=== PATIENT | female | born 1970 | race Caucasian/White ===

== ENCOUNTER 2017-10-11 19:13 | Emergency (ER) | payer OTHER ==
[2017-10-11] MEDS: KETOROLAC 60 MG INJ IM (21:30)
[2017-10-11 21:35] LABS: URINE PH (Dip) POC 6.5 (5.0-8.5)
[2017-10-11 21:35] LABS: URINE BLOOD (Dip) POC 2+ (NEGATIVE); URINE GLUCOSE (Dip) POC Negative (NEGATIVE); URINE KETONES (Dip) POC Negative (NEGATIVE); URINE LEUKOCYTE EST (Dip) POC Negative (NEGATIVE); URINE NITRITE (Dip) POC Negative (NEGATIVE); URINE TOTAL PROTEIN POC Negative (NEGATIVE)
[2017-10-11] MEDS: HYDROCODONE/APAP (5/325) TAB PO (23:36)
== END 2017-10-12 03:10 | disposition left against medical advice (07) ==
LOC: FTE 10-12 03:10
DX: M54.5 Low back pain (principal)
CPT/HCPCS: 72072; 72128; 81003; 96372; 99285-25

== ENCOUNTER 2017-12-19 16:53 | Emergency (ER) | payer OTHER ==
[2017-12-19] MEDS: HYDROCODONE/APAP (5/325) TAB PO (20:33)
[2017-12-19 20:50] LABS: ADD MAN DIFF? NO
[2017-12-19 20:53] LABS: BASOPHILS % 0.4 % (0.0-2.0); EOSINOPHILS # 0.1 10^3/ul (0.0-0.5); EOSINOPHILS % 1.2 % (0.0-7.0); HEMATOCRIT 36.7 % (37.0-47.0); HEMOGLOBIN 12.5 g/dl (12.0-16.0); LYMPHOCYTES % 29.2 % (15.0-51.0); MEAN CORPUSCULAR HEMOGLOBIN 31.1 pg (29.0-33.0); MEAN CORPUSCULAR HGB CONC 34.1 g/dl (32.0-37.0); MEAN CORPUSCULAR VOLUME 91.3 fl (82.0-101.0); MEAN PLATELET VOLUME 9.1 fl (7.4-10.4); MONOCYTE # 0.6 10^3/ul (0.3-0.9); MONOCYTES % 8.4 % (0.0-11.0); NEUTROPHIL # 4.1 10^3/ul (1.6-7.5); NEUTROPHILS % 60.7 % (39.0-77.0); PLATELET COUNT 353 10^3/UL (140-415); RED BLOOD COUNT 4.02 10^6/ul (4.20-5.40); RED CELL DISTRIBUTION WIDTH 13.3 % (11.5-14.5)
[2017-12-19 20:53] LABS: WHITE BLOOD COUNT 6.8 10^3/ul (4.8-10.8)
[2017-12-19 21:20] LABS: ALANINE AMINOTRANSFERASE 42 IU/L (13-69); ALBUMIN 4.5 g/dl (3.3-4.9); ALBUMIN/GLOBULIN RATIO 1.18; ALKALINE PHOSPHATASE 76 IU/L (42-121); ANION GAP 16 (8-16); ASPARTATE AMINO TRANSFERASE 27 IU/L (15-46); BLOOD UREA NITROGEN 9 mg/dl (7-20); CALCIUM 9.9 mg/dl (8.4-10.2); CARBON DIOXIDE 26 mmol/L (21-31); CHLORIDE 107 mmol/L (97-110); CREATININE 0.59 mg/dl (0.44-1.00); GLUCOSE 97 mg/dl (70-220); POTASSIUM 4.4 mmol/L (3.5-5.1); SODIUM 145 mmol/L (135-144); TOTAL PROTEIN 8.3 g/dl (6.1-8.1)
[2017-12-19 21:49] LABS: MONOTEST Negative (NEG)
== END 2017-12-19 23:10 | disposition home or self-care (01) ==
LOC: FTE 16:53
DX: R07.0 Pain in throat (principal)
CPT/HCPCS: 36415; 76536; 80053; 85025; 86308; 87880; 99284-25

== ENCOUNTER 2018-04-27 14:38 | Emergency (ER) | payer OTHER ==
[2018-04-27 16:53] LABS: WHITE BLOOD COUNT 5.1 10^3/ul (4.8-10.8)
[2018-04-27 16:53] LABS: ADD MAN DIFF? NO; BASOPHILS % 0.4 % (0.0-2.0); EOSINOPHILS # 0.1 10^3/ul (0.0-0.5); HEMATOCRIT 37.8 % (37.0-47.0); HEMOGLOBIN 12.6 g/dl (12.0-16.0); LYMPHOCYTES # 1.6 10^3/ul (0.8-2.9); MEAN CORPUSCULAR HEMOGLOBIN 31.7 pg (29.0-33.0); MEAN CORPUSCULAR HGB CONC 33.3 g/dl (32.0-37.0); MEAN PLATELET VOLUME 9.5 fl (7.4-10.4); MONOCYTE # 0.5 10^3/ul (0.3-0.9); MONOCYTES % 9.3 % (0.0-11.0); NEUTROPHIL # 2.9 10^3/ul (1.6-7.5); NEUTROPHILS % 58.1 % (39.0-77.0); PLATELET COUNT 368 10^3/UL (140-415); RED BLOOD COUNT 3.98 10^6/ul (4.20-5.40); RED CELL DISTRIBUTION WIDTH 12.9 % (11.5-14.5)
[2018-04-27 16:59] LABS: ALANINE AMINOTRANSFERASE 67 IU/L (13-69); ALBUMIN 4.7 g/dl (3.3-4.9); ALKALINE PHOSPHATASE 94 IU/L (42-121); ANION GAP 13 (8-16); ASPARTATE AMINO TRANSFERASE 56 IU/L (15-46); BILIRUBIN,INDIRECT 0.1 mg/dl (0-1.1); BILIRUBIN,TOTAL 0.1 mg/dl (0.2-1.3); BLOOD UREA NITROGEN 12 mg/dl (7-20); CARBON DIOXIDE 27 mmol/L (21-31); CHLORIDE 108 mmol/L (97-110); CREATININE 0.63 mg/dl (0.44-1.00); GLUCOSE 103 mg/dl (70-220); SODIUM 144 mmol/L (135-144); TOTAL PROTEIN 8.3 g/dl (6.1-8.1)
[2018-04-27] MEDS: ONDANSETRON 4 MG INJ IV (17:01)
[2018-04-27] MEDS: HYDROmorphONE 1 MG/ML SYG IV (17:01)
[2018-04-27 17:07] LABS: B-TYPE NATRIURETIC PEPTIDE 35 PG/ML (0-125)
== END 2018-04-27 20:15 | disposition home or self-care (01) ==
LOC: E/R 14:38
DX: R60.9 Edema, unspecified (principal); R40.2142 Coma scale, eyes open, spontaneous, at arrival to emergency department; R40.2252 Coma scale, best verbal response, oriented, at arrival to emergency department; R40.2362 Coma scale, best motor response, obeys commands, at arrival to emergency department; Z85.850 Personal history of malignant neoplasm of thyroid
CPT/HCPCS: 36415; 71045; 80053; 81025; 83880; 85025; 96374; 96375; 99284-25

== ENCOUNTER 2018-07-04 16:19 | Emergency (ER) | payer OTHER ==
[2018-07-04 19:11] LABS: ADD MAN DIFF? NO
[2018-07-04] MEDS: MAGNESIUM SULFATE 1 GM/D5W 100 ML IVPB (19:12)
[2018-07-04 19:13] LABS: BASOPHILS % 0.1 % (0.0-2.0); EOSINOPHILS # 0.1 10^3/ul (0.0-0.5); HEMATOCRIT 38.8 % (37.0-47.0); HEMOGLOBIN 12.8 g/dl (12.0-16.0); LYMPHOCYTES # 2.1 10^3/ul (0.8-2.9); MEAN CORPUSCULAR HEMOGLOBIN 30.4 pg (29.0-33.0); MEAN CORPUSCULAR VOLUME 92.2 fl (82.0-101.0); MEAN PLATELET VOLUME 8.9 fl (7.4-10.4); MONOCYTE # 0.5 10^3/ul (0.3-0.9); MONOCYTES % 6.5 % (0.0-11.0); NEUTROPHIL # 4.7 10^3/ul (1.6-7.5); NEUTROPHILS % 64.1 % (39.0-77.0); PLATELET COUNT 387 10^3/UL (140-415); RED BLOOD COUNT 4.21 10^6/ul (4.20-5.40); RED CELL DISTRIBUTION WIDTH 14.3 % (11.5-14.5)
[2018-07-04 19:13] LABS: WHITE BLOOD COUNT 7.4 10^3/ul (4.8-10.8)
[2018-07-04 19:33] LABS: ALBUMIN 4.7 g/dl (3.3-4.9)
[2018-07-04 19:35] LABS: ALBUMIN/GLOBULIN RATIO 1.14; ALKALINE PHOSPHATASE 90 IU/L (42-121); ANION GAP 12 (8-16); ASPARTATE AMINO TRANSFERASE 28 IU/L (15-46); BILIRUBIN,INDIRECT 0.2 mg/dl (0-1.1); BILIRUBIN,TOTAL 0.2 mg/dl (0.2-1.3); BLOOD UREA NITROGEN 15 mg/dl (7-20); CARBON DIOXIDE 29 mmol/L (21-31); CHLORIDE 105 mmol/L (97-110); CREATININE 0.58 mg/dl (0.44-1.00); GLUCOSE 119 mg/dl (70-220); POTASSIUM 3.6 mmol/L (3.5-5.1); SODIUM 142 mmol/L (135-144); TOTAL PROTEIN 8.8 g/dl (6.1-8.1)
[2018-07-04] MEDS: HYDROmorphONE 1 MG/ML SYG IV (19:45)
[2018-07-04] MEDS: ONDANSETRON 4 MG INJ IV (19:45)
[2018-07-04 19:47] LABS: B-TYPE NATRIURETIC PEPTIDE 99 PG/ML (0-125); TROPONIN-I < 0.012 ng/ml (0.000-0.120)
[2018-07-04 19:54] LABS: ALANINE AMINOTRANSFERASE 45 IU/L (13-69)
[2018-07-04 20:10] LABS: FREE T4 (FREE THYROXINE) 1.45 ng/dl (0.64-1.79)
[2018-07-04 20:27] LABS: THYROID STIMULATING HORMONE < 0.015 MIU/L (0.465-4.680)
== END 2018-07-04 21:52 | disposition home or self-care (01) ==
LOC: E/R 16:19
DX: M79.89 Other specified soft tissue disorders (principal); R25.2 Cramp and spasm; R51 Headache; R07.89 Other chest pain; R06.02 Shortness of breath; R20.2 Paresthesia of skin; Z85.850 Personal history of malignant neoplasm of thyroid
CPT/HCPCS: 36415; 71045; 80053; 81025; 83880; 84439; 84443; 84484; 85025; 93005; 93970; 96365; 96375; 99285-25

== ENCOUNTER 2019-01-13 17:21 | Emergency (ER) | payer OTHER ==
[2019-01-13] MEDS: KETOROLAC 30 MG INJ IM (19:09)
[2019-01-13] MEDS: ALPRAZOLAM 0.25 MG TAB PO (19:09)
[2019-01-13 19:22] LABS: ADD UMIC YES; UR ASCORBIC ACID NEGATIVE (NEGATIVE); UR BILIRUBIN (Dip) NEGATIVE (NEGATIVE); UR BLOOD (Dip) 1+ mg/dL (NEGATIVE); UR CLARITY CLEAR (CLEAR); UR COLOR STRAW (YELLOW); UR GLUCOSE (Dip) NEGATIVE (NEGATIVE); UR KETONES (Dip) NEGATIVE (NEGATIVE); UR LEUKOCYTE ESTERASE (Dip) NEGATIVE Leu/ul (NEGATIVE); UR NITRITE (Dip) NEGATIVE (NEGATIVE); UR RBC 0 /HPF (0-5); UR SPECIFIC GRAVITY (Dip) 1.002 (1.003-1.030); UR TOTAL PROTEIN (Dip) NEGATIVE (NEGATIVE); UR UROBILINOGEN (Dip) NEGATIVE (NEGATIVE); UR WBC 0 /HPF (0-5)
== END 2019-01-13 20:25 | disposition home or self-care (01) ==
LOC: FTE 20:25
DX: R07.0 Pain in throat (principal); F43.0 Acute stress reaction; L93.2 Other local lupus erythematosus; Z85.850 Personal history of malignant neoplasm of thyroid
CPT/HCPCS: 71045; 81001; 81025; 96372; 99285-25

== ENCOUNTER 2019-06-18 14:49 | Emergency (ER) | payer OTHER ==
[2019-06-18] MEDS: SOD CHLORIDE 0.9% 1,000 ML IV (15:12)
[2019-06-18] MEDS: DEXAMETHASONE 10 MG/ML 1 ML INJ IV (15:13)
[2019-06-18] MEDS: PROCHLORPERAZINE 10 MG INJ IV (15:13)
[2019-06-18] MEDS: DIPHENHYDRAMINE 50 MG INJ IV (15:13)
[2019-06-18] MEDS: ACETAMINOPHEN 325 MG TAB PO (15:13)
== END 2019-06-18 16:24 | disposition home or self-care (01) ==
LOC: E/R 14:49
DX: R51 Headache (principal); Z85.850 Personal history of malignant neoplasm of thyroid
CPT/HCPCS: 96374; 96375; 99284-25